=== PATIENT | male | born 1960 | race Caucasian/White ===

== ENCOUNTER 2020-02-27 23:23 | Emergency (ER) | payer BC ==
[2020-02-27 23:32] VITALS: RESP 18; TEMP 98.1
[2020-02-28] MEDS ORDERED: SODIUM CHLORIDE 0.9% 1,000 ML IV STA (00:04)
[2020-02-28] MEDS ORDERED: KETOROLAC 30 MG/ML 1 ML VIAL IVP STA (00:04)
[2020-02-28] MEDS ORDERED: DEXAMETHASONE SOD PHOSPHATE 20 MG in DEXTROSE 5% IN WATER 50 ML IV STA ×2 (00:05)
[2020-02-28] MEDS ORDERED: ORPHENADRINE 30 MG/ML 2 ML VIAL IVP STA (00:05)
[2020-02-28] MEDS ORDERED: MORPHINE SULFATE 4 MG/ML SYRINGE IVP STA (00:07)
[2020-02-28] MEDS ORDERED: MORPHINE SULFATE 2 MG/ML SYRINGE IVP ONE (00:17)
[2020-02-28 00:45] LABS: Basophils # (A) 0.1 k/uL (0-0.2); Basophils % (A) 0 %; Eosinophils # (A) 0.1 k/uL (0-0.7); Eosinophils % (A) 1 %; HCT 52.4 % (39.0-53.0); HGB 17.3 gm/dL (13.0-17.5); Lymphocytes # (A) 1.5 k/uL (1.0-4.8); Lymphocytes % (A) 11 %; MCH 30.3 pg (25.0-35.0); MCV 91.9 fL (80.0-100.0); Monocytes # (A) 0.9 k/uL (0-1.0); Monocytes % (A) 6 %; Neutrophils # (A) 11.1 k/uL (1.3-7.7); Neutrophils % (A) 81 %; Platelet Count 246 k/uL (150-450); RDW 13.7 % (11.5-15.5); WBC 13.7 k/uL (3.8-10.6)
--- NOTE | 2020-02-28 00:46 | ED ---
Back Pain HPI - General Chief Complaint: Back Pain/Injury Stated Complaint: back pain Time Seen by Provider: 02/27/20 23:35 Source: patient, EMS, RN notes reviewed, old records reviewed - History of Present Illness Initial Comments: Patient is a 59-year-old male whom arrives via EMS with CC of waking up with back pain and trying to do some stretches. He reports that after that he developed worseing back pain and shooting pain down R leg. Patient reports it was worse with movement and reports he was also concerned by the quick nature of the pain. He reports hx of kidney stones, and questions if the pain is muscles and spine vs kidney stone. Denies nausea and vomiting. Pt denies falls, trauma or saddle anesthesia. - Related Data Previous Rx's Medication Instructions Recorded Baclofen 10 mg PO TID #15 tab 02/28/20 Dexamethasone 0.75 mg PO DAILY #12 tab 02/28/20 Ibuprofen [Motrin] 600 mg PO Q6HR PRN #20 tab 02/28/20 Allergies Allergy/AdvReac Type Severity Reaction Status Date / Time Penicillins Allergy Dyspnea Verified 02/27/20 23:32 Review of Systems ROS Statement: Those systems with pertinent positive or pertinent negative responses have been documented in the HPI. ROS Other: All systems not noted in ROS Statement are negative. Past Medical History Past Medical History: COPD, Hypertension Additional Past Surgical History / Comment(s): eye Smoking Status: Current every day smoker Past Alcohol Use History: Occasional Past Drug Use History: None Reported General Exam - General Exam Comments Initial Comments: 59 year old male, mild discomfot. General appearance: alert, in no apparent distress Head exam: Present: atraumatic, normocephalic, normal inspection Eye exam: Present: normal appearance, PERRL, EOMI. Absent: scleral icterus, conjunctival injection, periorbital swelling ENT exam: Present: normal exam, mucous membranes moist Neck exam: Present: normal inspection. Absent: tenderness, meningismus, lymphadenopathy Respiratory exam: Present: normal lung sounds bilaterally. Absent: respiratory distress, wheezes, rales, rhonchi, stridor Cardiovascular Exam: Present: regular rate, normal rhythm, normal heart sounds. Absent: systolic murmur, diastolic murmur, rubs, gallop, clicks GI/Abdominal exam: Present: soft, normal bowel sounds. Absent: distended, tenderness, guarding, rebound, rigid Extremities exam: Present: normal inspection, full ROM, normal capillary refill, other (2 plus dorsalis pedis and posterior tibial pulse. normal stregth in BLE, normal dorsiflexion and plantar flexion. Able to feel light touch distally. No swelling or skin changes. ). Absent: tenderness, pedal edema, joint swelling, calf tenderness Back exam: Present: normal inspection, tenderness (lumbar spine, and R paraspinal muscles ), paraspinal tenderness Neurological exam: Present: alert, oriented X3, CN II-XII intact Psychiatric exam: Present: normal affect, normal mood Skin exam: Present: warm, dry, intact, normal color. Absent: rash Course Vital Signs 02/27/20 02/28/20 23:24 01:57 Temperature 98.1 F Pulse Rate 110 H 90 Respiratory 18 18 Rate Blood Pressure 147/85 141/85 O2 Sat by Pulse 96 96 Oximetry Medical Decision Making - Medical Decision Making 59 year old with sudden onset of back pain with stretching today, occassional paresthesia in R leg. Presentation is consistent with back spasm and pinched sciatic nerve due to Disc protrusion on nerve root. Patient VSS, no falls, or saddle anesthesia. Labs were revewed including UA, which is normal. Unlikely a kidney stone. Patient felt better after toradol, norflex, and solumedrol. Lumbar spine xray shows no fracture but disc degeneration. He was informed of renal stones on KUB but unlikely passing stone today as it is musculoskeletal in nature. Discussed return parameters and follow up. DC with note for work and Rx. - Lab Data Result diagrams: 02/28/20 00:30 02/28/20 00:30 Lab Results 02/28/20 02/28/20 02/28/20 Range/Units 00:30 00:30 01:30 WBC 13.7 H (3.8-10.6) k/uL RBC 5.70 (4.30-5.90) m/uL Hgb 17.3 (13.0-17.5) gm/dL Hct 52.4 (39.0-53.0) % MCV 91.9 (80.0-100.0) fL MCH 30.3 (25.0-35.0) pg MCHC 33.0 (31.0-37.0) g/dL RDW 13.7 (11.5-15.5) % Plt Count 246 (150-450) k/uL Neutrophils % 81 % Lymphocytes % 11 % Monocytes % 6 % Eosinophils % 1 % Basophils % 0 % Neutrophils # 11.1 H (1.3-7.7) k/uL Lymphocytes # 1.5 (1.0-4.8) k/uL Monocytes # 0.9 (0-1.0) k/uL Eosinophils # 0.1 (0-0.7) k/uL Basophils # 0.1 (0-0.2) k/uL Sodium 137 (137-145) mmol/L Potassium 3.9 (3.5-5.1) mmol/L Chloride 102 (98-107) mmol/L Carbon Dioxide 22 (22-30) mmol/L Anion Gap 13 mmol/L BUN 9 (9-20) mg/dL Creatinine 0.65 L (0.66-1.25) mg/dL Est GFR (CKD-EPI)AfAm >90 (>60 ml/min/1.73 sqM) Est GFR (CKD-EPI)NonAf >90 (>60 ml/min/1.73 sqM) Glucose 115 H (74-99) mg/dL Calcium 9.5 (8.4-10.2) mg/dL Total Bilirubin 0.9 (0.2-1.3) mg/dL AST 53 (17-59) U/L ALT 79 H (4-49) U/L Alkaline Phosphatase 52 (38-126) U/L Total Protein 7.3 (6.3-8.2) g/dL Albumin 4.4 (3.5-5.0) g/dL Urine Color Yellow Urine Appearance Clear (Clear) Urine pH 6.0 (5.0-8.0) Ur Specific Spruce 1.024 (1.001-1.035) Urine Protein 2+ H (Negative) Urine Glucose (UA) Negative (Negative) Urine Ketones Negative (Negative) Urine Blood Negative (Negative) Urine Nitrite Negative (Negative) Urine Bilirubin Negative (Negative) Urine Urobilinogen 2.0 (<2.0) mg/dL Ur Leukocyte Esterase Negative (Negative) Urine RBC 2 (0-5) /hpf Urine WBC 1 (0-5) /hpf Ur Squamous Epith Cells <1 (0-4) /hpf Urine Mucus Moderate H (None) /hpf - Radiology Data Radiology results: report reviewed KUB shows bilateral small renal stones, non acute abdomen. Lumbar spine shows DDD. mild degenerative spurring, no fracture. There probably multiple small bilateral renal calculus. Disposition Clinical Impression: Back pain, Sciatica, right side Disposition: HOME SELF-CARE Condition: Good Instructions (If sedation given, give patient instructions): Sciatica (ED), Muscle Spasm (ED) Additional Instructions: Patient advised follow-up with primary care physician. Patient advised to take anti-inflammatory medicine and muscle relaxers as prescribed. Return to emergency department if any alarming signs or symptoms occur. Prescriptions: Baclofen 10 mg PO TID #15 tab Dexamethasone 0.75 mg PO DAILY #12 tab Ibuprofen [Motrin] 600 mg PO Q6HR PRN #20 tab PRN Reason: Pain Is patient prescribed a controlled substance at d/c from ED?: No Referrals: None,Stated [Primary Care Provider] - 1-2 days Xavier Avalos MD [REFERRING] - 1-2 days Time of Disposition: 02:23
[2020-02-28 00:52] LABS: ALT 79 U/L (4-49); AST 53 U/L (17-59); African American GFR (CKD) >90 (>60 ml/min/1.73 sqM); Albumin 4.4 g/dL (3.5-5.0); Alkaline Phosphatase 52 U/L (38-126); Anion Gap 13 mmol/L; Blood Urea Nitrogen 9 mg/dL (9-20); Calcium 9.5 mg/dL (8.4-10.2); Carbon Dioxide 22 mmol/L (22-30); Chloride 102 mmol/L (98-107); Glucose 115 mg/dL (74-99); Non-African American GFR(CKD) >90 (>60 ml/min/1.73 sqM); Potassium 3.9 mmol/L (3.5-5.1); Sodium 137 mmol/L (137-145); Total Bilirubin 0.9 mg/dL (0.2-1.3); Total Protein 7.3 g/dL (6.3-8.2)
--- NOTE | 2020-02-28 01:19 | XR ---
EXAMINATION TYPE: XR KUB DATE OF EXAM: 02/28/2020 COMPARISON: NONE HISTORY: Flank pain TECHNIQUE: 2 views FINDINGS: There is no sign of intestinal obstruction or pneumoperitoneum. There are small calcificati ons over both kidneys that measure up to 3 mm. Lung bases are clear. There is no evidence of a mass. Fecal pattern is normal. IMPRESSION: There are probably small bilateral renal calculi. Nonacute abdomen.
--- NOTE | 2020-02-28 01:30 | XR ---
EXAMINATION TYPE: XR lumbar spine 2 or 3V DATE OF EXAM: 02/28/2020 COMPARISON: NONE HISTORY: Flank pain and back pain TECHNIQUE: 3 views FINDINGS: There is mild lumbar levoscoliosis. Disc spaces are fairly normal. There is no compression fracture. Posterior elements are intact. Sacroiliac joints appear normal. There is mild spurring of t he endplates. IMPRESSION: Mild degenerative spurring. No fracture seen. There probably multiple small bilateral justin al calculi.
[2020-02-28 01:57] VITALS: BP 141/85; PULSE 90
[2020-02-28 01:59] LABS: Appearance,Urine Clear (Clear); Bilirubin,Urine Negative (Negative); Blood,Urine Negative (Negative); Color,Urine Yellow; Glucose,Urine (UA) Negative (Negative); Ketones,Urine Negative (Negative); Leukocyte Esterase,Urine Negative (Negative); Mucus,Urine Moderate /hpf; Nitrite,Urine Negative (Negative); Protein,Urine 2+ (Negative); RBC,Urine 2 /hpf (0-5); Specific Gravity,Urine 1.024 (1.001-1.035); Squamous Epithelial Cell,Urine <1 /hpf (0-4); WBC,Urine 1 /hpf (0-5)
[2020-02-28] MEDS ORDERED: ACET/COD 300 MG/30 MG STARTER PACK 6 TAB BTL PO STA (02:32)
[2020-02-28] MEDS ORDERED: CYCLOBENZAPRINE 10MG STARTER 3 TAB BTL PO STA (02:32)
== END 2020-02-28 02:48 | disposition home or self-care (01) ==
LOC: EC 23:23
DX: M54.31 Sciatica, right side (principal); F17.200 Nicotine dependence, unspecified, uncomplicated; Z88.0 Allergy status to penicillin
CPT/HCPCS: 36415; 72100; 74018; 80053; 81001; 85025; 96361; 96365; 96375; 99284